=== PATIENT | female | born 1965 | race Caucasian/White ===

== ENCOUNTER 2017-11-28 08:44 | Emergency (ER) | payer MEDICAID ==
[~2017-11-28] VITALS: Ht 157.5 cm; Wt 71.0 kg
[~2017-11-28 08:44] MED LIST: CYAN10009 PO; FISH1CAP38 PO; LISI10TA5 PO; LISI1TAB9 PO; MULT-1146 PO; OMEP20TA2 PO; OYSCO PO; PANT40TA4 PO; SUCR1ORA PO
[2017-11-28] MEDS ORDERED: MORPHINE SULFATE 4 MG/ML CPJ (NOT FOR IM USE) IV STA ×2 (09:24→12:20)
[2017-11-28] MEDS ORDERED: ONDANSETRON HCL 4MG/2ML VIAL IV STA ×2 (09:24→12:20)
[2017-11-28] MEDS ORDERED: SODIUM CHLORIDE 0.9% 1,000 ML IV ONE (09:24)
[2017-11-28 09:45] LABS: BASOPHILS % 1.2 % (0.0-2.0); HEMATOCRIT. 37.8 % (36.0-48.0); LYMPHOCYTES % 26.6 % (20.0-50.0); MEAN CORPUSCULAR HEMOGLOBIN 29.2 pg (28.0-32.0); MEAN CORPUSCULAR VOLUME 84.7 fL (81.0-99.0); MEAN PLATELET VOLUME 9.7 fl (7.4-10.4); MONOCYTES % 6.4 % (2.0-8.0); NEUTROPHILS % 63.8 % (40.0-76.0); PLATELET 168 x1000/uL (130-400); RED BLOOD CELL COUNT 4.46 mill/uL (4.2-5.4); RED CELL DISTRIBUTION WIDTH 13.4 % (11.6-14.6)
[2017-11-28 09:54] LABS: PROTHROMBIN TIME 10.6 sec (9.4-11.6)
[2017-11-28 09:56] LABS: CHLORIDE 106 mEq/L (98-107)
[2017-11-28 10:08] LABS: CLARITY URINE CLEAR (CLEAR); COLOR URINE YELLOW (YELLOW); KETONES URINE NEGATIVE (NEGATIVE); LEUKOCYTE ESTERASE URINE NEGATIVE (NEGATIVE); NITRITE URINE NEGATIVE (NEGATIVE); OCCULT BLOOD URINE NEGATIVE (NEGATIVE); PH URINE 6.5 (4.5-8.0); PROTEIN URINE NEGATIVE (NEGATIVE); SPECIFIC GRAVITY URINE 1.014 (1.005-1.030)
[2017-11-28] MEDS ORDERED: IOHEXOL-300 100 ML BOTTLE ONE (11:10)
[2017-11-28] MEDS ORDERED: KETOROLAC 30MG/ML VIAL IV STA (11:18)
[2017-11-28 13:47] VITALS: BP 161/88
== END 2017-11-28 13:53 | disposition home or self-care (01) ==
LOC: ER 09:06
DX: R10.30 Lower abdominal pain, unspecified (principal); I10 Essential (primary) hypertension; K21.9 Gastro-esophageal reflux disease without esophagitis; Z88.0 Allergy status to penicillin; Z91.040 Latex allergy status
CPT/HCPCS: 36415; 74177; 80053; 81003; 83690; 85025; 85610; 96361; 96374; 96375; 96376; 99285; J1885; J2270; J2405; J7030; Q9967; Z7610

== ENCOUNTER 2018-08-23 10:41 | Emergency (ER) | payer MEDICAID ==
[~2018-08-23] VITALS: Ht 157.5 cm; Wt 70.0 kg
[2018-08-23] MEDS ORDERED: HYDROCODONE/ACETAMINOPHEN 5/325MG TABLET PO ONE ×2 (12:45→16:00)
[2018-08-23] MEDS ORDERED: LIDOCAINE HCL/PF 1% 10 MG/ML 30ML VIAL INFIL ONE (12:45)
[2018-08-23] MEDS ORDERED: TETANUS, DIPHTHERIA, PERTUSSIS VAC/PF 0.5ML (>7YR OLD) IM ONE (13:15)
[2018-08-23] MEDS ORDERED: LORAZEPAM 2MG/ML CPJ IM ONE (15:00)
[2018-08-23] MEDS ORDERED: KETOROLAC 30MG/ML VIAL IM ONE (16:00)
[2018-08-23] MEDS ORDERED: BACITRACIN ZINC OINT UDPKT TOP ONE (17:45)
[2018-08-23 17:57] VITALS: BP 150/94
== END 2018-08-23 17:57 | disposition home or self-care (01) ==
LOC: ER 12:06
DX: S62.603B Fracture of unspecified phalanx of left middle finger, initial encounter for open fracture (principal); S62.605B Fracture of unspecified phalanx of left ring finger, initial encounter for open fracture; I10 Essential (primary) hypertension; Z90.710 Acquired absence of both cervix and uterus; Z79.899 Other long term (current) drug therapy; Z88.0 Allergy status to penicillin; W45.8XXA Other foreign body or object entering through skin, initial encounter; Y93.89 Activity, other specified; Y92.89 Other specified places as the place of occurrence of the external cause; Y99.8 Other external cause status; Z91.040 Latex allergy status
CPT/HCPCS: 12001; 73140; 90471; 90715; 96372; 99283; J1885; J2060; J3490

== ENCOUNTER 2019-02-26 14:38 | Inpatient (IN) | payer MEDICAID, OTHER ==
[~2019-02-26] VITALS: Ht 153 cm; Wt 75.7 kg
[2019-02-26] MEDS ORDERED: ONDANSETRON HCL 4MG/2ML INJ IV STA (15:38)
[2019-02-26] MEDS ORDERED: MORPHINE SULFATE 4 MG/ML CPJ (NOT FOR IM USE) IV STA (15:38)
[2019-02-26 15:41] LABS: CLARITY URINE CLEAR (CLEAR); COLOR URINE YELLOW (YELLOW); KETONES URINE NEGATIVE (NEGATIVE); LEUKOCYTE ESTERASE URINE NEGATIVE (NEGATIVE); NITRITE URINE NEGATIVE (NEGATIVE); OCCULT BLOOD URINE NEGATIVE (NEGATIVE); PH URINE 5.5 (4.5-8.0); PROTEIN URINE NEGATIVE (NEGATIVE); SPECIFIC GRAVITY URINE 1.021 (1.005-1.030); UROBILINOGEN URINE 0.2 E.U./dL (0.2-1.0)
[2019-02-26 15:44] LABS: CHLORIDE 109 mEq/L (98-107)
[2019-02-26 15:45] LABS: PARTIAL THROMBOPLASTIN TIME 26.7 sec (23.4-31.0); PROTHROMBIN TIME 10.4 sec (9.6-11.0)
[2019-02-26] MEDS ORDERED: ASPIRIN 81MG TABLET PO ONE (15:45)
[2019-02-26] MEDS ORDERED: ENALAPRIL 2.5MG/2ML VIAL 2ML IV ONE (15:45)
[2019-02-26] MEDS ORDERED: NITROGLYCERIN OINT 1GM/INCH UDPKT TD ONE (15:45)
[2019-02-26 15:48] LABS: BASOPHILS % 0.8 % (0.0-2.0); ETHANOL BLOOD < 10 mg/dL; HEMATOCRIT. 40.6 % (36.0-48.0); HEMOGLOBIN. 14.1 g/dL (12.0-16.0); LYMPHOCYTES % 28.4 % (20.0-50.0); MEAN CORPUSCULAR HEMOGLOBIN 29.6 pg (28.0-32.0); MEAN CORPUSCULAR VOLUME 85.4 fL (81.0-99.0); MEAN PLATELET VOLUME 10.5 fl (7.4-10.4); MONOCYTES % 6.5 % (2.0-8.0); NEUTROPHILS % 62.3 % (40.0-76.0); PLATELET 162 x1000/uL (130-400); RED BLOOD CELL COUNT 4.76 mill/uL (4.2-5.4); RED CELL DISTRIBUTION WIDTH 13.3 % (11.6-14.6)
[2019-02-26 15:54] LABS: *AMPHETAMINES SCREEN URINE NEGATIVE (NEGATIVE)
[2019-02-26 15:55] LABS: *BARBITURATES SCREEN URINE NEGATIVE (NEGATIVE); *BENZODIAZEPINES SCREEN URINE NEGATIVE (NEGATIVE); *COCAINE SCREEN URINE NEGATIVE (NEGATIVE); CANNABINOID URINE SCREEN NEGATIVE (NEGATIVE); METHADONE URINE SCREEN NEGATIVE (NEGATIVE); OPIATES URINE SCREEN PRESUMTIVE POSITIVE (NEGATIVE); PHENCYCLIDINE URINE SCREEN NEGATIVE (NEGATIVE)
[2019-02-26] MEDS ORDERED: ACETAMINOPHEN 325MG TABLET PO PRN (17:15)
[2019-02-26] MEDS ORDERED: HYDRALAZINE 20MG/ML VIAL IV PRN (17:15)
[2019-02-26] MEDS: LOSARTAN POTASSIUM 50 MG TABLET PO SCH (19:45)
[2019-02-26] MEDS: HYDROCODONE/ACETAMINOPHEN 5/325MG TABLET PO PRN (19:57)
[2019-02-26 20:00] VITALS: BP 130/82
[2019-02-26] MEDS: METOPROLOL TARTRATE 25MG TABLET PO SCH (20:06)
[2019-02-26] MEDS: AMLODIPINE 5MG TABLET PO SCH (20:07)
[2019-02-26 20:25] VITALS: BP 149/94
[2019-02-26 22:00] VITALS: BP 170/100
[2019-02-26] MEDS: ONDANSETRON HCL 4MG/2ML INJ IV PRN (22:33)
[2019-02-26 22:39] VITALS: BP 170/100
[2019-02-26] MEDS: MORPHINE SULFATE 2 MG/ML CPJ (NOT FOR IM USE) IV PRN (22:42)
[2019-02-27] VITALS: BP 134/83
[2019-02-27 04:00] VITALS: BP 129/78
[2019-02-27] MEDS: MORPHINE SULFATE 2 MG/ML CPJ (NOT FOR IM USE) IV PRN ×3 (05:58→18:51)
[2019-02-27 06:58] LABS: BASOPHILS % 0.9 % (0.0-2.0); EOSINOPHILS % 1.4 % (0.0-5.0); HEMATOCRIT. 38.5 % (36.0-48.0); HEMOGLOBIN. 13.6 g/dL (12.0-16.0); LYMPHOCYTES % 27.6 % (20.0-50.0); MEAN CORPUSCULAR HEMOGLOBIN 30.1 pg (28.0-32.0); MEAN CORPUSCULAR VOLUME 85.1 fL (81.0-99.0); MEAN PLATELET VOLUME 10.5 fl (7.4-10.4); MONOCYTES % 6.8 % (2.0-8.0); NEUTROPHILS % 63.3 % (40.0-76.0); PLATELET 158 x1000/uL (130-400); RED BLOOD CELL COUNT 4.52 mill/uL (4.2-5.4); RED CELL DISTRIBUTION WIDTH 13.4 % (11.6-14.6)
[2019-02-27] MEDS: HYDROCODONE/ACETAMINOPHEN 5/325MG TABLET PO PRN (07:14)
[2019-02-27 07:17] LABS: CHLORIDE 108 mEq/L (98-107)
[2019-02-27 08:00] VITALS: BP 141/89
[2019-02-27] MEDS ORDERED: LISINOPRIL 10MG TABLET PO SCH (09:00)
[2019-02-27] MEDS: LOSARTAN POTASSIUM 50 MG TABLET PO SCH (09:27)
[2019-02-27] MEDS: AMLODIPINE 5MG TABLET PO SCH (09:28)
[2019-02-27] MEDS: ASPIRIN 81MG TABLET PO SCH (09:28)
[2019-02-27] MEDS: METOPROLOL TARTRATE 25MG TABLET PO SCH ×2 (09:28→21:01)
[2019-02-27] MEDS: OMEPRAZOLE 20MG CAPSULE EXTENDED RELEASE PO SCH (09:29)
[2019-02-27] MEDS ORDERED: MECLIZINE 25MG TABLET PO SCH (10:45)
[2019-02-27] MEDS ORDERED: MECLIZINE 25MG TABLET PO PRN (10:45)
[2019-02-27 12:00] VITALS: BP 141/87
[2019-02-27 16:00] VITALS: BP 138/90
[2019-02-27 20:00] VITALS: BP 146/86
[2019-02-27] MEDS: AMLODIPINE 2.5MG TABLET PO SCH (21:01)
[2019-02-28] VITALS: BP 111/76
[2019-02-28 04:00] VITALS: BP 120/74
[2019-02-28] MEDS: OMEPRAZOLE 20MG CAPSULE EXTENDED RELEASE PO SCH (06:03)
[2019-02-28] MEDS: MORPHINE SULFATE 2 MG/ML CPJ (NOT FOR IM USE) IV PRN ×3 (06:03→22:03)
[2019-02-28 07:22] LABS: BASOPHILS % 0.9 % (0.0-2.0); EOSINOPHILS % 3.6 % (0.0-5.0); HEMATOCRIT. 41.2 % (36.0-48.0); HEMOGLOBIN. 14.7 g/dL (12.0-16.0); LYMPHOCYTES % 31.2 % (20.0-50.0); MEAN CORPUSCULAR HEMOGLOBIN 30.7 pg (28.0-32.0); MEAN CORPUSCULAR VOLUME 85.9 fL (81.0-99.0); MEAN PLATELET VOLUME 10.5 fl (7.4-10.4); MONOCYTES % 8.1 % (2.0-8.0); NEUTROPHILS % 56.2 % (40.0-76.0); PLATELET 156 x1000/uL (130-400); RED CELL DISTRIBUTION WIDTH 13.3 % (11.6-14.6)
[2019-02-28 08:00] VITALS: BP 135/79
[2019-02-28 08:01] LABS: CHLORIDE 108 mEq/L (98-107)
[2019-02-28] MEDS: LOSARTAN POTASSIUM 50 MG TABLET PO SCH (08:39)
[2019-02-28] MEDS: METOPROLOL TARTRATE 25MG TABLET PO SCH ×2 (08:39→20:34)
[2019-02-28] MEDS: ASPIRIN 81MG TABLET PO SCH (08:39)
[2019-02-28] MEDS: AMLODIPINE 2.5MG TABLET PO SCH ×2 (08:39→20:34)
[2019-02-28] MEDS ORDERED: REGADENOSON 0.4 MG/5 ML IV ONE (10:30)
[2019-02-28] MEDS: KETOROLAC 30MG/ML VIAL IV SCH ×2 (11:50→17:00)
[2019-02-28 12:00] VITALS: BP 137/77
[2019-02-28] MEDS: ONDANSETRON HCL 4MG/2ML INJ IV PRN ×2 (12:10→22:09)
[2019-02-28 16:00] VITALS: BP 119/72
[2019-02-28 20:23] VITALS: BP 131/83
[2019-03-01] VITALS: BP 125/82
[2019-03-01 04:00] VITALS: BP 125/83
[2019-03-01 08:00] VITALS: BP 137/87
[2019-03-01] MEDS: KETOROLAC 30MG/ML VIAL IV SCH ×2 (08:59→17:00)
[2019-03-01] MEDS ORDERED: FAMOTIDINE 20MG TABLET PO SCH (09:00)
[2019-03-01] MEDS: ASPIRIN 81MG TABLET PO SCH (10:10)
[2019-03-01] MEDS: AMLODIPINE 2.5MG TABLET PO SCH (10:11)
[2019-03-01] MEDS: METOPROLOL TARTRATE 25MG TABLET PO SCH (10:12)
[2019-03-01] MEDS: LOSARTAN POTASSIUM 50 MG TABLET PO SCH (10:12)
[2019-03-01] MEDS ORDERED: REGADENOSON 0.4 MG/5 ML IV ONE (11:48)
[2019-03-01 12:00] VITALS: BP 140/87
[2019-03-01] MEDS ORDERED: LOSA50TA3 PO (13:09)
[2019-03-01] MEDS ORDERED: ASPI-1160 PO (13:09)
[2019-03-01] MEDS ORDERED: AMLO2.5T45 PO (13:09)
[2019-03-01] MEDS ORDERED: METO25TA6 PO (13:09)
[2019-03-01] MEDS: MORPHINE SULFATE 2 MG/ML CPJ (NOT FOR IM USE) IV PRN (13:51)
[2019-03-01 15:43] VITALS: BP 140/87
[2019-03-01 16:00] VITALS: BP 139/85
== END 2019-03-01 17:38 | disposition home or self-care (01) | DRG 48 ==
LOC: ER 14:38 → 8WST 16:25 → EDBEDREQ 16:27 → ENRESERV 17:13
PROVIDERS: ADMIT Internal Medicine; ATTEND Internal Medicine
DX: G90.8 Other disorders of autonomic nervous system (principal); E87.8 Other disorders of electrolyte and fluid balance, not elsewhere classified; I24.8 Other forms of acute ischemic heart disease; I16.0 Hypertensive urgency; R51 Headache; E66.9 Obesity, unspecified; E78.5 Hyperlipidemia, unspecified; E78.00 Pure hypercholesterolemia, unspecified; I10 Essential (primary) hypertension; Z90.710 Acquired absence of both cervix and uterus; Z98.891 History of uterine scar from previous surgery; Z88.0 Allergy status to penicillin; Z91.040 Latex allergy status; Z79.899 Other long term (current) drug therapy
CPT/HCPCS: 36415; 71045; 78452; 80048; 80061; 80305; 80320; 83880; 84443; 84484; 93005; 93306; 93970; 99285; A9500; J1885; J2270; J2405; J2785; J3490; J8597; G0480

== ENCOUNTER 2022-05-27 19:46 | Emergency (ER) | payer MEDICAID, OTHER ==
[~2022-05-27] VITALS: Ht 157.5 cm; Wt 72.0 kg
[~2022-05-27 19:46] MED LIST changes: +AMLO2.5T45 PO; +ASPI-1160 PO; -CYAN10009 PO; -LISI10TA5 PO; -LISI1TAB9 PO; +LOSA50TA3 PO; +METO25TA6 PO; -MULT-1146 PO; -OMEP20TA2 PO; +OMEP20TA23 PO; -OYSCO PO; -PANT40TA4 PO; -SUCR1ORA PO
[2022-05-27] MEDS ORDERED: HYDROCODONE/ACETAMINOPHEN 5/325MG TABLET PO ONE (21:45)
[2022-05-27] MEDS ORDERED: IBUPROFEN 400MG TABLET PO ONE (21:45)
[2022-05-27] MEDS ORDERED: IBUP-2028 MT (23:05)
[2022-05-27] MEDS ORDERED: HYDR-4001 MT (23:12)
[2022-05-27 23:33] VITALS: BP 133/74
== END 2022-05-27 23:39 | disposition home or self-care (01) ==
LOC: ER 19:46
DX: M25.561 Pain in right knee (principal); M25.551 Pain in right hip; M25.552 Pain in left hip; M79.661 Pain in right lower leg; R26.2 Difficulty in walking, not elsewhere classified; Z91.81 History of falling; I10 Essential (primary) hypertension
CPT/HCPCS: 72192; 73521; 73552; 73560; 99284

== ENCOUNTER 2023-01-01 08:28 | Emergency (ER) | payer MEDICAID ==
[~2023-01-01] VITALS: Ht 157.5 cm; Wt 68.2 kg
[~2023-01-01 08:28] MED LIST changes: +HYDR-4001 MT; +IBUP-2028 MT
[2023-01-01 09:10] LABS: CLARITY URINE CLEAR (CLEAR); COLOR URINE YELLOW (YELLOW); KETONES URINE NEGATIVE (NEGATIVE); LEUKOCYTE ESTERASE URINE 1+ (NEGATIVE); NITRITE URINE NEGATIVE (NEGATIVE); OCCULT BLOOD URINE NEGATIVE (NEGATIVE); PROTEIN URINE NEGATIVE (NEGATIVE); SPECIFIC GRAVITY URINE 1.016 (1.005-1.030); UROBILINOGEN URINE 0.2 E.U./dL (0.2-1.0)
[2023-01-01 09:48] LABS: BASOPHILS % 1.1 % (0.0-2.0); EOSINOPHILS % 3.6 % (0.0-5.0); HEMATOCRIT. 39.8 % (36.0-48.0); LYMPHOCYTES % 33.7 % (20.0-50.0); MEAN CORPUSCULAR HEMOGLOBIN 29.9 pg (28.0-32.0); MEAN CORPUSCULAR VOLUME 84.9 fL (81.0-99.0); MEAN PLATELET VOLUME 10.5 fl (7.4-10.4); MONOCYTES % 7.6 % (2.0-8.0); PLATELET 173 x1000/uL (130-400); RED BLOOD CELL COUNT 4.69 mill/uL (4.2-5.4); RED CELL DISTRIBUTION WIDTH 13.5 % (11.6-14.6)
[2023-01-01 09:56] LABS: CHLORIDE 109 mEq/L (98-107); HCG SCREEN NEGATIVE
[2023-01-01 10:01] LABS: PARTIAL THROMBOPLASTIN TIME 28.9 sec (23.4-31.0); PROTHROMBIN TIME 11.2 sec (9.6-11.0)
[2023-01-01] MEDS ORDERED: KETOROLAC 30MG/ML VIAL IV STA (11:16)
[2023-01-01] MEDS ORDERED: METOCLOPRAMIDE HCL 10MG/2ML VIAL IV ONE (11:30)
[2023-01-01] MEDS ORDERED: SODIUM CHLORIDE 0.9% 1,000 ML IV ONE (11:30)
[2023-01-01] MEDS ORDERED: DIPHENHYDRAMINE 50MG/ML VIAL IV ONE (11:30)
[2023-01-01] MEDS ORDERED: KETOROLAC 30MG/ML VIAL IV NR (13:00)
[2023-01-01 13:14] VITALS: BP 134/83
== END 2023-01-01 15:27 | disposition home or self-care (01) ==
LOC: ER 08:28
DX: G44.209 Tension-type headache, unspecified, not intractable (principal); R07.89 Other chest pain; I10 Essential (primary) hypertension; E78.00 Pure hypercholesterolemia, unspecified; Z88.0 Allergy status to penicillin; Z88.6 Allergy status to analgesic agent; Z91.040 Latex allergy status; Z79.899 Other long term (current) drug therapy; Z98.890 Other specified postprocedural states
CPT/HCPCS: 36415; 71045; 80053; 81003; 84484; 84703; 85025; 85379; 85610; 85730; 93005; 96374; 96375; 99285; J1200; J1885; J2765; J7030; Z7610

== ENCOUNTER 2023-08-21 06:35 | Emergency (ER) | payer MEDICAID, OTHER ==
[~2023-08-21] VITALS: Ht 157.5 cm; Wt 69.0 kg
[~2023-08-21 06:35] MED LIST changes: +LOSA-413 PO; -LOSA50TA3 PO
[2023-08-21 07:21] VITALS: TEMP 98.3; O2SAT 98
[2023-08-21] MEDS ORDERED: KETOROLAC 60MG/2ML VIAL IM ONE (09:45)
[2023-08-21] MEDS ORDERED: FLUT9.9S BOTHNSTRLS (10:33)
[2023-08-21 10:38] VITALS: BP 154/100; PULSE 78; RESP 18
== END 2023-08-21 10:39 | disposition home or self-care (01) ==
LOC: ER 06:35
DX: J06.9 Acute upper respiratory infection, unspecified (principal); R51.9 Headache, unspecified; I10 Essential (primary) hypertension; Z88.0 Allergy status to penicillin; Z88.6 Allergy status to analgesic agent; Z91.040 Latex allergy status; Z79.899 Other long term (current) drug therapy; Z98.890 Other specified postprocedural states
CPT/HCPCS: 71045; 96372; 99283; J1885; Z7610

== ENCOUNTER 2024-07-15 03:22 | Emergency (ER) | payer MEDICAID ==
[~2024-07-15] VITALS: Ht 157.5 cm; Wt 69.0 kg
[~2024-07-15 03:22] MED LIST changes: +FLUT9.9S BOTHNSTRLS
[2024-07-15 04:10] VITALS: BP 138/87; RESP 20; TEMP 98.3; O2SAT 98; O2SAT 99
[2024-07-15] MEDS: HYDROCODONE/ACETAMINOPHEN 5/325MG TABLET PO ONE (04:30)
[2024-07-15 04:47] LABS: BASOPHILS % 1.1 % (0.0-2.0); EOSINOPHILS % 2.5 % (0.0-5.0); HEMOGLOBIN. 13.8 g/dL (12.0-16.0); LYMPHOCYTES % 26.8 % (20.0-50.0); MEAN CORPUSCULAR HEMOGLOBIN 29.5 pg (28.0-32.0); MEAN CORPUSCULAR HGB CONC 33.6 g/dL (31.0-37.0); MEAN PLATELET VOLUME 9.8 fl (7.4-10.4); NEUTROPHILS % 61.6 % (40.0-76.0); PLATELET 161 x1000/uL (130-400); RED BLOOD CELL COUNT 4.66 mill/uL (4.2-5.4); RED CELL DISTRIBUTION WIDTH 13.4 % (11.6-14.6); WHITE BLOOD COUNT 5.4 x1000/uL (4.5-11.0)
[2024-07-15 04:52] LABS: CHLORIDE 112 mEq/L (98-107); POTASSIUM 3.5 mEq/L (3.5-5.1); SODIUM 144 mEq/L (136-145)
[2024-07-15 04:53] LABS: CALCIUM 9.2 mg/dL (8.7-10.4); CARBON DIOXIDE 27 mEq/L (21-32)
[2024-07-15 04:57] LABS: CLARITY URINE CLEAR (CLEAR); COLOR URINE YELLOW (YELLOW); GLUCOSE URINE NEGATIVE (NEGATIVE); KETONES URINE NEGATIVE (NEGATIVE); LEUKOCYTE ESTERASE URINE NEGATIVE (NEGATIVE); NITRITE URINE NEGATIVE (NEGATIVE); OCCULT BLOOD URINE 2+ (NEGATIVE); PROTEIN URINE NEGATIVE (NEGATIVE); SPECIFIC GRAVITY URINE 1.015 (1.005-1.030); UROBILINOGEN URINE 0.2 E.U./dL (0.2-1.0)
[2024-07-15 04:58] LABS: CREATININE 0.7 mg/dL (0.6-1.0); GLUCOSE 110 mg/dL (70-105); UREA NITROGEN BLOOD 14 mg/dL (9-23)
[2024-07-15 05:00] LABS: ALANINE AMINOTRANSFERASE 22 IU/L (10-49); ALBUMIN 4.5 g/dL (3.2-4.8); ASPARTATE AMINOTRANSFERASE 24 IU/L (<34); BILIRUBIN DIRECT 0.2 mg/dL (<=3.0); BILIRUBIN TOTAL 0.7 mg/dL (0.1-1.0); PROTEIN TOTAL 7.7 g/dL (6.0-8.3)
[2024-07-15] MEDS ORDERED: HYDR-4001 MT (05:51)
[2024-07-15] MEDS ORDERED: TAMS-11 MT (05:51)
[2024-07-15 06:00] VITALS: PULSE 66
[2024-07-15] MEDS: TAMSULOSIN HCL 0.4MG SR CAPSULE PO ONE (06:00)
[2024-07-15 06:38] LABS: WBC URINE 0-2 /hpf (0-2)
[2024-07-15 06:39] LABS: BACTERIA URINE TRACE; SQUAMOUS EPITHELIAL CELL URINE RARE /lpf (RARE/1+)
== END 2024-07-15 06:33 | disposition home or self-care (01) ==
LOC: ER 03:22
DX: N20.1 Calculus of ureter (principal); I10 Essential (primary) hypertension; Z88.0 Allergy status to penicillin; Z88.6 Allergy status to analgesic agent; Z79.82 Long term (current) use of aspirin; Z79.899 Other long term (current) drug therapy
CPT/HCPCS: 36415; 74176; 80048; 80076; 81003; 83605; 85025; 99284

== ENCOUNTER 2025-08-27 20:52 | Inpatient (IN) | payer MEDICARE ==
[~2025-08-27] VITALS: Ht 157.5 cm; Wt 73.4 kg
[~2025-08-27 20:52] MED LIST changes: +TAMS-54 MT
[2025-08-27 21:09] VITALS: O2SAT 99
[2025-08-27] MEDS: PANTOPRAZOLE SODIUM 40 MG/VIAL IV ONE (21:49)
[2025-08-27] MEDS: ONDANSETRON HCL 4MG/2ML INJ IV ONE (21:49)
[2025-08-27] MEDS: MORPHINE SULFATE 4 MG/ML INJ (FOR IV/IM USE) IV ONE (21:49)
[2025-08-27] MEDS: SODIUM CHLORIDE 0.9% 1,000 ML IV ONE (21:49)
[2025-08-27 21:58] LABS: BASOPHILS % 0.2 % (0.0-2.0); EOSINOPHILS % 1.4 % (0.0-5.0); HEMATOCRIT. 39.5 % (36.0-48.0); HEMOGLOBIN. 12.9 g/dL (12.0-16.0); LYMPHOCYTES % 13.9 % (20.0-50.0); MEAN PLATELET VOLUME 10.0 fl (7.4-10.4); MONOCYTES % 0.8 % (2.0-8.0); NEUTROPHILS % 83.7 % (40.0-76.0); PLATELET 128 x1000/uL (130-400); RED BLOOD CELL COUNT 4.54 mill/uL (4.2-5.4); RED CELL DISTRIBUTION WIDTH 13.5 % (11.6-14.6)
[2025-08-27 22:26] LABS: CREATININE 0.8 mg/dL (0.6-1.0)
[2025-08-27 22:27] LABS: PROTEIN TOTAL 7.2 g/dL (6.0-8.3); UREA NITROGEN BLOOD 20 mg/dL (9-23)
[2025-08-27 22:28] LABS: ASPARTATE AMINOTRANSFERASE 25 IU/L (<34)
[2025-08-27 22:29] LABS: BILIRUBIN DIRECT 0.2 mg/dL (<=3.0); BILIRUBIN TOTAL 0.7 mg/dL (0.1-1.0)
[2025-08-27 22:45] LABS: CLARITY URINE CLEAR (CLEAR); COLOR URINE YELLOW (YELLOW); GLUCOSE URINE NEGATIVE (NEGATIVE); KETONES URINE NEGATIVE (NEGATIVE); LEUKOCYTE ESTERASE URINE TRACE (NEGATIVE); NITRITE URINE NEGATIVE (NEGATIVE); OCCULT BLOOD URINE 2+ (NEGATIVE); PH URINE 5.5 (4.5-8.0); PROTEIN URINE NEGATIVE (NEGATIVE); SPECIFIC GRAVITY URINE 1.011 (1.005-1.030); UROBILINOGEN URINE 0.2 E.U./dL (0.2-1.0)
[2025-08-27 23:12] LABS: BACTERIA URINE 2+; SQUAMOUS EPITHELIAL CELL URINE FEW /lpf (RARE/1+); WBC URINE 0-2 /hpf (0-2)
[2025-08-28] VITALS (7 sets, daily range): BP systolic 103–141; BP diastolic 50–75; PULSE 78–109; RESP 18–21; TEMP 36.3–37.7; O2SAT 94–99
[2025-08-28] MEDS: MORPHINE SULFATE 4 MG/ML INJ (FOR IV/IM USE) IV ONE (00:58)
[2025-08-28] MEDS: SODIUM CHLORIDE 0.9% 1,000 ML IV ONE (00:58)
[2025-08-28] MEDS: PANTOPRAZOLE 40MG DR TABLET PO SCH (09:13)
[2025-08-28] MEDS: HYDROCODONE/ACETAMINOPHEN 10/325MG TABLET PO PRN (09:13)
[2025-08-28] MEDS: LOSARTAN 50 MG TABLET PO SCH (09:17)
[2025-08-28] MEDS: AMLODIPINE 10MG TABLET PO SCH (09:18)
[2025-08-28] MEDS: METOPROLOL TARTRATE 25MG TABLET PO SCH ×2 (09:19→21:42)
[2025-08-28] MEDS: LEVOTHYROXINE SODIUM 100MCG TABLET PO SCH (09:19)
[2025-08-28] MEDS: ENOXAPARIN 40MG/0.4ML SYR SUBCUT SCH (09:19)
[2025-08-28] MEDS: ONDANSETRON HCL 4MG/2ML INJ IV PRN ×2 (12:27→21:43)
[2025-08-28] MEDS ORDERED: NALOXONE HCL 0.4MG/ML VIAL IV PRN (17:00)
[2025-08-28] MEDS: ACETAMINOPHEN 325MG TABLET PO PRN (17:08)
[2025-08-28] MEDS ORDERED: ACETAMINOPHEN 325MG TABLET PO PRN (19:15)
[2025-08-28] MEDS: CEFTRIAXONE 1GM/50ML 50 ML IV SCH (21:50)
[2025-08-29] VITALS: BP 136/72; PULSE 84; RESP 20; TEMP 37.1; O2SAT 97
[2025-08-29 04:00] VITALS: BP 120/67; PULSE 75; RESP 18; TEMP 37.1; O2SAT 97
[2025-08-29 07:08] LABS: BASOPHILS % 0.5 % (0.0-2.0); EOSINOPHILS % 0.5 % (0.0-5.0); HEMATOCRIT. 35.6 % (36.0-48.0); HEMOGLOBIN. 12.0 g/dL (12.0-16.0); LYMPHOCYTES % 11.2 % (20.0-50.0); MEAN PLATELET VOLUME 10.1 fl (7.4-10.4); MONOCYTES % 8.7 % (2.0-8.0); NEUTROPHILS % 79.1 % (40.0-76.0); PLATELET 107 x1000/uL (130-400); RED BLOOD CELL COUNT 4.12 mill/uL (4.2-5.4); RED CELL DISTRIBUTION WIDTH 13.6 % (11.6-14.6)
[2025-08-29] MEDS ORDERED: PANTOPRAZOLE 40MG DR TABLET PO SCH (07:20)
[2025-08-29 07:34] LABS: CREATININE 0.7 mg/dL (0.6-1.0); UREA NITROGEN BLOOD 9 mg/dL (9-23)
[2025-08-29 08:00] VITALS: BP 134/76; PULSE 89; RESP 19; TEMP 36.3; O2SAT 97
[2025-08-29] MEDS: AMLODIPINE 2.5MG TABLET PO SCH (08:43)
[2025-08-29] MEDS: LOSARTAN 50 MG TABLET PO SCH (08:43)
[2025-08-29] MEDS: ASPIRIN 81MG TABLET PO SCH (08:43)
[2025-08-29] MEDS: FISH OIL/OMEGA-3 FATTY ACIDS 1000MG CAPSULE PO SCH (08:44)
[2025-08-29] MEDS: PANTOPRAZOLE SODIUM 40 MG/VIAL IV SCH (11:33)
[2025-08-29 12:00] VITALS: BP 112/53; PULSE 82; RESP 21; TEMP 37.3; O2SAT 99
[2025-08-29 16:00] VITALS: BP 128/71; PULSE 80; RESP 18; TEMP 36.3; O2SAT 98
[2025-08-29 20:00] VITALS: BP 127/88; PULSE 82; RESP 17; TEMP 36.4; O2SAT 98
[2025-08-30] VITALS: BP 130/70; PULSE 86; RESP 17; TEMP 36.9; O2SAT 98
[2025-08-30] MEDS: DIPHENHYDRAMINE 50MG/ML VIAL IV PRN (01:50)
[2025-08-30 04:00] VITALS: BP 122/59; PULSE 80; RESP 16; TEMP 36.9; O2SAT 98
[2025-08-30 08:00] VITALS: BP 139/74; PULSE 72; RESP 19; TEMP 38.4; O2SAT 98
[2025-08-30 12:00] VITALS: BP 115/63; PULSE 80; RESP 18; TEMP 36.7; O2SAT 96
[2025-08-30 16:00] VITALS: BP 127/70; PULSE 82; RESP 18; TEMP 36.3; O2SAT 99
[2025-08-30] MEDS ORDERED: DIAZEPAM 5 MG/ML 2ML SYR IV PRN (17:15)
[2025-08-30] MEDS: TAMSULOSIN HCL 0.4MG SR CAPSULE PO SCH (18:22)
[2025-08-30 20:00] VITALS: BP 157/69; PULSE 77; RESP 16; TEMP 36.7; O2SAT 97
[2025-08-31] VITALS: BP 128/72; PULSE 75; RESP 17; TEMP 36.6; O2SAT 98
[2025-08-31 04:00] VITALS: BP 122/70; PULSE 79; RESP 18; TEMP 36.8; O2SAT 99
[2025-08-31 06:57] LABS: BASOPHILS % 0.6 % (0.0-2.0); EOSINOPHILS % 1.3 % (0.0-5.0); HEMATOCRIT. 33.8 % (36.0-48.0); HEMOGLOBIN. 11.5 g/dL (12.0-16.0); LYMPHOCYTES % 15.7 % (20.0-50.0); MEAN PLATELET VOLUME 9.7 fl (7.4-10.4); MONOCYTES % 11.0 % (2.0-8.0); NEUTROPHILS % 71.4 % (40.0-76.0); PLATELET 147 x1000/uL (130-400); RED BLOOD CELL COUNT 3.97 mill/uL (4.2-5.4); RED CELL DISTRIBUTION WIDTH 13.0 % (11.6-14.6)
[2025-08-31 07:08] LABS: CREATININE 0.6 mg/dL (0.6-1.0)
[2025-08-31 07:11] LABS: UREA NITROGEN BLOOD 6 mg/dL (9-23)
[2025-08-31 08:00] VITALS: BP 132/65; PULSE 68; RESP 16; TEMP 36.8; O2SAT 95
[2025-08-31] MEDS: MORPHINE SULFATE 2 MG/ML INJ (NOT FOR IM USE) IV PRN (09:09)
[2025-08-31 12:00] VITALS: BP 137/66; PULSE 65; RESP 17; TEMP 37.2; O2SAT 97
[2025-08-31] MEDS ORDERED: PROPOFOL 200MG/20ML VIAL IV ONE (15:56)
[2025-08-31] MEDS ORDERED: MIDAZOLAM HCL 2 MG/2 ML VIAL ONE (15:56)
[2025-08-31 16:00] VITALS: BP 125/69; PULSE 77; RESP 17; TEMP 37.7; O2SAT 96
[2025-08-31] MEDS ORDERED: LABETALOL 5MG/ML 4ML INJ IV PRN (16:00)
[2025-08-31] MEDS ORDERED: FENTANYL CITRATE/PF 50MCG/ML 2ML VIAL ONE (16:00)
[2025-08-31] MEDS ORDERED: HYDRALAZINE 20MG/ML VIAL IV PRN ×2 (16:00)
[2025-08-31] MEDS ORDERED: ONDANSETRON HCL 4MG/2ML INJ IV PRN (16:00)
[2025-08-31] MEDS: HYDROMORPHONE HCL/PF 1MG/ML INJ IV PRN (18:51)
[2025-09-01 06:27] LABS: BASOPHILS % 0.1 % (0.0-2.0); EOSINOPHILS % 0.0 % (0.0-5.0); HEMATOCRIT. 33.6 % (36.0-48.0); HEMOGLOBIN. 11.6 g/dL (12.0-16.0); LYMPHOCYTES % 7.3 % (20.0-50.0); MEAN PLATELET VOLUME 9.4 fl (7.4-10.4); MONOCYTES % 4.5 % (2.0-8.0); NEUTROPHILS % 88.1 % (40.0-76.0); PLATELET 183 x1000/uL (130-400); RED BLOOD CELL COUNT 3.98 mill/uL (4.2-5.4); RED CELL DISTRIBUTION WIDTH 13.2 % (11.6-14.6)
[2025-09-01 06:53] LABS: CREATININE 0.5 mg/dL (0.6-1.0)
[2025-09-01 06:54] LABS: UREA NITROGEN BLOOD 7 mg/dL (9-23)
[2025-09-01] MEDS ORDERED: SULF1TAB48 MT (15:00)
[2025-09-01 15:51] VITALS: BP 121/70; PULSE 74; RESP 18; TEMP 97.9
== END 2025-09-01 17:28 | disposition home or self-care (01) | DRG 690 ==
LOC: ER 20:52 → EDBEDREQDT 08-28 00:11 → EDBEDREQTM 08-28 00:11 → EDBEDREQ 08-28 00:11 → ENRESERV 08-28 00:39 → 6EST 08-28 01:26
PROVIDERS: ADMIT Internal Medicine; ATTEND Internal Medicine
PROC: 0TC68ZZ Extirpation of Matter from Right Ureter, Via Natural or Artificial Opening Endoscopic (ICD-10-PCS; principal; 2025-08-31)
DX: N13.6 Pyonephrosis (principal); E87.0 Hyperosmolality and hypernatremia; N20.1 Calculus of ureter; K76.0 Fatty (change of) liver, not elsewhere classified; R16.0 Hepatomegaly, not elsewhere classified; N88.8 Other specified noninflammatory disorders of cervix uteri; Z91.040 Latex allergy status; Z88.0 Allergy status to penicillin; Z79.899 Other long term (current) drug therapy; R10.9 Unspecified abdominal pain; M19.90 Unspecified osteoarthritis, unspecified site
CPT/HCPCS: 36415; 71045; 74176; 74430; 76000; 80048; 80076; 81003; 85025; 93005; 96361; 96374; 96375; 99285; A4606; A4615; C1758; C1769; J0696; J1171; J1200; J1650; J2250; J2270; J2405; J2470; J2704; J3010; J7030; A4217